=== PATIENT | female | born 1970 | race Caucasian/White ===

== ENCOUNTER 2020-02-17 08:51 | Emergency (ER) | payer SELFPAY ==
[2020-02-17 08:53] VITALS: BP 140/89; PULSE 91; RESP 18; TEMP 36.3; O2SAT 98; BMI 34.3
--- NOTE | 2020-02-17 08:58 | [facility].EDGENADL ---
ED Disposition Clinical Impression: Poison zaida dermatitis Disposition: Home, Self-Care Condition on Discharge: Good Instructions: Poisonous Plants: [place], [place], and [place]: Beware the Oils, DI for Poison [place] Allergy Additional Instructions: Continue Benadryl. Clean the rash gently each day with soap and water. Prednisone as prescribed. Prescriptions: predniSONE [Prednisone 10mg Tab Dose-Pack] 10 mg PO DAILY #42 pack Prescription Printed Referrals: Provider,Referral, MD [Primary Care Provider] - - Critical Care Critical Care Time: No Attestation: On , the high probability of a clinically significant, sudden or life threatening deterioration of the following system(s) required my full and direct attention, intervention and personal management. The time I documented below is in addition to time spent performing reported procedures but includes the following listed in this critical care notation. Medical Decision Making - Jake Inquiry Pt receiving controlled substance: No Vital Signs: 02/17/20 08:53 Temperature 97.3 F L Temperature Source Temporal Artery Scan Pulse Rate [Radial] 91 H Respiratory Rate 18 Blood Pressure [Right Arm] 140/89 Blood Pressure Mean [Right Arm] 106 Blood Pressure Source [Right Arm] Automatic Cuff Blood Pressure Position [Right Arm] Sitting 02 Sat by Pulse Oximetry 98 Oxygen Delivery Method Room Air Orders (Tests/Meds): ED MEDICATIONS Discontinued Medications Generic Name Dose Route Start Last Admin Trade Name Barneyq PRN Reason Stop Dose Admin Dexamethasone Sodium Phosphate 10 mg 02/17/20 09:15 Decadron 4mg/Ml 1ml Vial IM 02/17/20 09:16 ONCE ONE General Adult HPI - General Stated complaint: Poison Za[place] Time Seen by Provider: 02/17/20 08:58 - History of Present Illness HPI narrative: 3-day history of poison zaida rash on her arms. Complains of itching and pain. She is using topical corticosteroids and antihistamines as well as taking oral Benadryl and Zyrtec. She says that she lives in [place], got poison [place] from [place] tomatoes and [place] in the [place] before coming to [place]. - Related Data Previous Rx's Medication Instructions Recorded predniSONE [Prednisone 10mg Tab 10 mg PO DAILY #42 pack 02/17/20 Dose-Pack] Allergies Allergy/AdvReac Type Severity Reaction Status Date / Time No Known Allergies Allergy Verified 02/17/20 09:07 [facility] [place] History - Hepatitis A Screen Attestation statement:: This patient has been screened for Hepatitis A risk factors. I have reviewed the patient's past medical history: Yes ROS Obtained: Yes Systems reviewed as appropriate & no additional complaints - Constitutional Constitutional: Denies fever(s) - Integumentary/Breasts Skin/Breast: Reports rash Physical Exam - General General appearance: alert, in no apparent distress - Respiratory Respiratory exam: Absent: respiratory distress - Cardiovascular Cardiovascular exam: Present: regular rate - Extremities Exam Extremities exam: Present: normal capillary refill - Neurological Exam Neurological exam: Present: alert, oriented X3 - Psychiatric Psychiatric exam: Present: normal affect, normal mood - Skin Skin exam: Present: warm, dry, rash (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 No signs of secondary infection.)
[2020-02-17 09:48] VITALS: BP 145/85; PULSE 80; RESP 20; TEMP 36.8; O2SAT 98
== END 2020-02-17 10:23 | disposition home or self-care (01) ==
LOC: ER 10:23
PROVIDERS: Emergency Provider Emergency Medicine
DX: L23.7 Allergic contact dermatitis due to plants, except food (principal)
CPT/HCPCS: 96372; 99281; 99282